=== PATIENT | female | born 1995 ===

== ENCOUNTER 2022-12-23 12:32 | Outpatient (REF) | payer SELFPAY | END 2022-12-23 12:33 | disposition home or self-care (01) | LOC: HO.HHCLNP 12:32 | PROVIDERS: Visit Provider Family Medicine | DX: Z13.89 Encounter for screening for other disorder (principal) ==

== ENCOUNTER 2022-12-24 | Outpatient (REF) | payer SELFPAY | END 2022-12-24 00:01 | disposition home or self-care (01) | LOC: HO.HHCLNP | PROVIDERS: Visit Provider Family Medicine | DX: R30.0 Dysuria (principal) | CPT/HCPCS: 87086 ==